=== PATIENT | female | born 1955 | race Caucasian/White ===

== ENCOUNTER 2020-04-28 01:47 | Emergency (ER) | payer MEDICARE ==
[2020-04-28 03:41] LABS: RED CELL DISTRIBUTION WIDTH 15.7 % (11.5-14.0)
--- NOTE | 2020-04-28 03:53 | ER Document Report ---
ED General - General Chief Complaint: Near Syncope Stated Complaint: POSS SYNCOPE Time Seen by Provider: 04/28/20 03:40 Primary Care Provider: DEBBI JENKINS MD [Primary Care Provider] - Follow up as needed Mode of Arrival: Ambulatory Information source: Patient Notes: Patient is a 64-year-old female coming in today for lightheadedness and near syncope. Patient reports that she was bearing down to have a bowel movement and became very lightheaded and almost passed out. Her came and found her to be clammy and sweaty. Patient denies chest pain and shortness of breath. States that she did not actually black out. She says that she has had this happen in the past when trying to have a bowel movement. She has not been sick recently. No vomiting or diarrhea. - Related Data Allergies/Adverse Reactions: No Known Allergies Allergy (Verified 04/28/20 03:23) Past Medical History - Social History Smoking Status: Current Every Day Smoker Chew tobacco use (# tins/day): No Frequency of alcohol use: None Drug Abuse: None Family History: Reviewed & Not Pertinent Endocrine Medical History: Reports: Hx Diabetes Mellitus Type 2 Past Surgical History: Reports: Hx Cardiac Surgery Review of Systems - Review of Systems Notes: Constitutional: No fevers. No chills. EENT: No eye redness. No eye pain. No ear pain. No sore throat. Cardiovascular: No chest pain. No palpitations. Respiratory: No cough. No shortness of breath. No respiratory distress. Gastrointestinal: No abdominal pain. No nausea, vomiting, or diarrhea. Genitourinary: Atraumatic. No lesions. No pain. No discharge. Musculoskeletal: Atraumatic. No swelling. No deformities. Skin: No rash or lesions. Lymphatic: No swollen lymph nodes. Neurologic: Positive lightheadedness, near syncope Psychiatric: No suicidal or homicidal ideation. Physical Exam - Vital signs Vitals: Temp 97.9 F 04/28/20 01:47 - Notes Notes: General: Appears older than stated age Cardiac: Well-perfused. Regular rate and rhythm. No murmurs, rubs, or gallops. Pulmonary: No respiratory distress. No cyanosis. Bilateral lung Valera are clear to auscultation. Abdominal: Non-distended. Non-rigid. Bowels sounds are present in all four quadrants. No guarding or rebound. HEENT: Head is atraumatic. Conjunctivae not reddened. No tearing. PERRL. EOMI. Orbits atraumatic. No periorbital swelling or erythema. Oropharynx is without erythema, swelling, or exudates. Neck: Supple. No adenopathy. No meningismus. Dermatologic: Warm with good turgor. No rash. Atraumatic. Chest: Atraumatic. No chest wall tenderness to palpation. Musculoskeletal: Moves all extremities well. No range of motion deficits. no muscular or joint tenderness. No paraspinal muscle tenderness. no midline spinal tenderness or step-off. Genitourinary: Examination deferred Neurologic: No gross neurologic deficits. Psychiatric: Normal mood. Course - Re-evaluation Re-evalutation: 04/28/20 03:53 Patient's vital signs look good. She is not tachypneic. Not tachycardic. Oxygen saturation is good. She has had a small bolus of fluids by the ambulance service. She has not had any chest pain or shortness of breath associated with these symptoms. The symptoms started while the patient was for VAGALING on the toilet. Suspect vasovagal near syncope. Cardiac work-up appropriately ordered. Suspect everything will be normal. 04/28/20 06:39 Patient resting comfortably. As mentioned before, no history of chest pain or shortness of breath. Symptoms resolved after he had stopped wiggling on the toilet. Labs reassuring. Cardiac enzymes negative. Normal EKG. will discharge - Vital Signs Vital signs: Temp Pulse Resp BP Pulse Ox 97.9 F 75 18 137/68 H 100 04/28/20 02:07 04/28/20 04:15 04/28/20 02:07 04/28/20 04:15 04/28/20 02:07 - Laboratory Result Diagrams: 04/28/20 03:29 04/28/20 03:29 Laboratory results interpreted by me: 04/28/20 04/28/20 04/28/20 03:29 03:29 05:50 WBC 13.0 H RBC 5.63 H Hgb 11.8 L MCV 64 L MCH 21.0 L RDW 15.7 H Seg Neuts % (Manual) 79 H Abs Neuts (Manual) 10.3 H Potassium 3.3 L Chloride 111 H Carbon Dioxide 21 L Creatinine 0.45 L Glucose 140 H Total Protein 5.8 L Urine Protein 100 H Discharge - Discharge Clinical Impression: Vagal reaction, Near syncope Condition: Good Disposition: HOME, SELF-CARE Instructions: Near Syncopal Episode ([facility]) Referrals: DEBBI JENKINS MD [Primary Care Provider] - Follow up as needed
[2020-04-28] MEDS ORDERED: NORMAL SALINE 1000 ML 1,000 ML IV ONE (03:55)
[2020-04-28 03:56] LABS: ALBUMIN 3.5 g/dL (3.5-5.0); ALKALINE PHOSPHATASE 78 U/L (38-126); ANION GAP 11 (5-19); ASPARTATE AMINO TRANSFERASE 15 U/L (14-36); BILIRUBIN,DIRECT 0.1 mg/dL (0.0-0.4); BILIRUBIN,TOTAL 0.4 mg/dL (0.2-1.3); BLOOD UREA NITROGEN 14 mg/dL (7-20); CALCIUM 8.5 mg/dL (8.4-10.2); CARBON DIOXIDE 21 mmol/L (22-30); CHLORIDE 111 mmol/L (98-107); CREATINE KINASE 35 U/L (30-135); GLUCOSE 140 mg/dL (75-110); HEMATOCRIT 36.3 % (36.0-47.0); HEMOGLOBIN 11.8 g/dL (12.0-15.5); MEAN CORPUSCULAR HGB CONC 32.6 g/dL (32.0-36.0); PLATELET COUNT 229 10^3/uL (150-450); POTASSIUM 3.3 mmol/L (3.6-5.0); RED BLOOD COUNT 5.63 10^6/uL (3.72-5.28); TOTAL PROTEIN 5.8 g/dL (6.3-8.2)
[2020-04-28 03:58] LABS: MEAN CORPUSCULAR VOLUME 64 fl (80-97)
[2020-04-28 04:15] LABS: ABSOLUTE LYMPHOCYTES# (MANUAL) 1.8 10^3/uL (0.5-4.7); ABSOLUTE MONOCYTES # (MANUAL) 0.8 10^3/uL (0.1-1.4); ANISOCYTOSIS 1+; BASOPHILS % (MANUAL) 0 % (0-2); EOSINOPHILS % (MANUAL) 1 % (0-6); LYMPHOCYTES % (MANUAL) 14 % (13-45); MONOCYTES % (MANUAL) 6 % (3-13); SEGMENTED NEUTROPHILS % (MAN) 79 % (42-78); TOTAL CELLS COUNTED 100; TROPONIN I < 0.012 ng/mL
[2020-04-28 04:16] LABS: OVALOCYTES 1+; PLATELET COMMENT ADEQUATE; POIKILOCYTOSIS SLIGHT; POLYCHROMASIA SLIGHT
[2020-04-28] MEDS ORDERED: POTASSIUM CHLORIDE 10 MEQ TABLET.ER PO ONE (06:09)
[2020-04-28 06:28] LABS: APPEARANCE,URINE SLIGHTLY-CLOUDY; BILIRUBIN,URINE NEGATIVE (NEGATIVE); COLOR,URINE YELLOW; GLUCOSE, URINE NEGATIVE (NEGATIVE); KETONES,URINE NEGATIVE (NEGATIVE); LEUKOCYTE ESTERASE,URINE NEGATIVE (NEGATIVE); NITRITE,URINE NEGATIVE (NEGATIVE); PROTEIN,URINE 100 mg/dL (NEGATIVE); URINE SPECIFIC GRAVITY 1.018; UROBILINOGEN,URINE NEGATIVE mg/dL (<2.0)
[2020-04-28 06:45] VITALS: BP 106/66
--- NOTE | 2020-04-28 19:38 | EKG REPORT ---
SEVERITY:- NORMAL ECG - SINUS RHYTHM : Confirmed by: Angelia Cameron MD 28-Apr-2020 19:37:58
[2020-04-30 12:45] LABS: PATH REVIEW PATHOLOGIST REVIEWED
== END 2020-04-28 07:07 | disposition home or self-care (01) ==
LOC: ER 01:47
DX: R55 Syncope and collapse (principal); F17.200 Nicotine dependence, unspecified, uncomplicated; E11.9 Type 2 diabetes mellitus without complications
CPT/HCPCS: 93005; 99284; 96360; 36415; 82553; 82550; 85025; 80053; 81001; 84484; 93010; J7030; A9270